=== PATIENT | female | born 1960 | race Caucasian/White ===

== ENCOUNTER 2025-06-07 12:45 | Outpatient (AMB) | payer OTHER, SELFPAY ==
--- OUTSIDE RECORDS SUMMARY | 2021-07-30 17:40 | XMS_ITS | Encounter Summary ---
Author Organization [facility] Address [address] [facility] [address] [place] [phone] Phone Care Team Providers Care Red Lead Burner Name Role Phone Daisy Mclean MD, MPH Primary Care Provid er Encounter Details Date Type Department Care Team (Late st Contact Info) Description 07/30/2021 4:40 PM EST Hospital Encounter [facility] [address] [place] [phone] Corina Stewart, LUZ ELENA [address] [place] [address] [email or web address] Social History Tobacco Use Types Packs/Day Years Used Date Smoking Tobacco: Never Smokeless Tobacco: Never Alcohol Use Standard Drinks/Week Comments Yes 0 (1 standard drink = 0.6 oz pur e alcohol) Rare; special occ Child or Family Care Answer Date Record ed Do you have problems with on e of the following making it difficult for you to work, study, or receive health care? No 03/11/2021 Education Answer Date Recorded Are you interested in more education? Not on wood e 03/17/2023 Are you concerned about learning? Not on file 03/17/2023 No 03/17/2023 No 03/17/2023 Food Answer Date Recorded Within the past 6 months we worried whether our food would run out before we got money to buy more. Never True 03/11/2021 Within the past 6 months the food we bought just didn't last and we didn't have enough money to get more. Never True Residential Stability Answer Date Recor ded What is your housing situation today? I have stephanie grace 03/11/2021 How many times have you move d in the past 12 months? Zero (I did not move) 03/11/2021 06 Are you worried that in t he next 2 months, you may not have your own housing to live in? No 03/11/2021 Paying for Meds Answer Date Recorded Do you have trouble paying for medicines? No 03/11/2021 Paying Utility Bills Answer Date Record ed Do you have trouble paying your heating or elect ricity bill? No 03/11/2021 Transportation Answer Date Recorded Has the lack of transportati on kept you from medical appointments or from getting medications? No 03/11/2021 Unemployment Answer Date Recorded Are you currently unemployed or working on a part-time or temporary basis, and looking for work? No 03/11/2021 Digital Access Answer Date Recorded No 02/16/2023 No 02/16/2023 Reliable internet access at home? Not on file 02/16/2023 Device with a working camera? Not on file Intimate Partner Violence Answer Date R ecorded Are you denied basic needs s uch as food, clothing, or medical care? No 10/09/2022 In the past 12 months have y ou been in a relationship with a person who hurts, threatens, or tries to control you? No 10/09/2022 Are you denied basic needs s uch as food, clothing, or medical care? No 10/09/2022 In the past 12 months have y ou been in a relationship with a person who hurts, threatens, or tries to control you? No 10/09/2022 Comments No Sex and Gender Information Value Date Recorded Sex Assigned at Female 03/11/2021 10:51 AM EDT Legal Sex Female 9:46 PM EDT Gender Identity Female 03/11/2021 10:51 AM EDT Sexual Orientation Straight 03/11/2021 10 :51 AM EDT documented as of this encounter Plan of Treatment Not on file documented as of this encounter Procedures Procedure Name Priority Date/Time Associated Diagnosis Comments XR LUMBOSACRAL SPINE 4 OR MORE VIEWS Urgent/patient waiting 07/30/2021 4:59 PM EST Midline low back pain without sciatica, unspecified chronicity documented in this encounter Results * XR LUMBOSACRAL SPINE 4 OR MORE VIEWS (07/30/2021 4:59 PM EST) Anatomical Region Laterality Modality L-spine Computed Radiogr aphy 07/30/2021 5:09 PM EST Impressions 07/30/2021 5:11 PM EST No displaced fracture. Narrative 07/30/2021 5:11 PM EST XR LUMBOSACRAL SPINE 4 OR MORE VIEWS COMPARISON: None FINDINGS: Normal alignment. Normal vertebral body heights. Normal intervertebral disc spaces. Multilevel small endplate osteophytes. Mild facet arthropathy at the mid to lower lumbar spine. Intact sacroiliac joints. Procedure Note Andie Mendes MD - 07/30/2021 XR LUMBOSACRAL SPINE 4 OR MORE VIEWS COMPARISON: None FINDINGS: Normal alignment. Normal vertebral body heights. Normal intervertebraldisc spaces. Multilevel small endplate osteophytes. Mild facet arthropathyat the mid to lower lumbar spine. Intact sacroiliac joints. IMPRESSION: No displaced fracture. Corina Stewart JET HANDLER IMG XR SPINE Final Resul t documented in this encounter Visit Diagnoses Not on filedocumented in this encounter Additional Health Concerns Assessment Noted Time PHQ-2 Depression Total Score: 0 03/11/20 21 10:45 AM EDT documented as of this encounter Care Teams Red Lead Burner Relationship Specialty Start Date End Date Daisy Mclean MD, MPH [address] [place] [phone] PCP - General Family Medicine 03/11/21 11/17/22 documented as of this encounter Additional Source Comments The information contained in this document represents components of the legal health record. It is not the complete legal health record.[facility]
--- OUTSIDE RECORDS SUMMARY | 2021-12-06 09:51 | XMS_ITS | Encounter Summary ---
Author Organization [facility] Address [address] [facility] [address] [place] [phone] Phone Care Team Providers Care Lead Instructor/Flight Attendant Name Role Phone Daisy Mclean MD, MPH Primary Care Provid er Encounter Details Date Type Department Care Team (Late st Contact Info) Description 12/06/2021 9:51 AM EDT Hospital Encounter [facility] [address] [place] [phone] Corina Stewart, LUZ ELENA [address] [place] [phone] Social History Tobacco Use Types Packs/Day Years [...] your housing situation today? I have stephanie sing 03/11/2021 How many times have you move [...] Name Priority Date/Time Associated Diagnosis Comments XR KNEE 4 OR MORE VIEWS (LEFT) Urgent/patient waiting 12/06/2021 10:00 AM EDT Knee strain, left, subsequent encounter documented in this encounter Results * XR KNEE 4 OR MORE VIEWS (LEFT) (12/06/2021 10:00 AM EDT) Anatomical Region Laterality Modality Knee Left Computed Radiogr aphy 12/06/2021 10:2 6 AM EDT Impressions 12/06/2021 10:28 AM EDT No fracture or dislocation. Narrative 12/06/2021 10:28 AM EDT XR KNEE 4 OR MORE VIEWS (LEFT) COMPARISON: None. FINDINGS: No fracture. Normal alignment. Normal joint spaces. No effusion. Procedure Note Sobeida Meyer MD - 12/06/2021 XR KNEE 4 OR MORE VIEWS (LEFT) COMPARISON: None. FINDINGS: No fracture. Normal alignment. Normal joint spaces. No effusion. IMPRESSION: No fracture or dislocation. Corina Stewart OCULAR PATHOLOGIST IMG XR LOWER EXTREMITY Elda l Result documented in this encounter Visit Diagnoses Not on filedocumented in this encounter Additional Health Concerns Assessment Noted Time PHQ-2 Depression Total Score: 0 03/11/20 21 10:45 AM EDT documented as of this encounter Care Teams Lead Instructor/Flight Attendant Relationship Specialty Start Date End Date Daisy Mclean MD, MPH [address] [place] [address] [email or web address] PCP - General Family Medicine 03/11/21 11/17/22 documented as of this encounter Additional Source Comments The information contained in this document represents components of the legal health record. It is not the complete legal health record.[facility]
--- NOTE | 2025-06-07 12:53 | MHC.OFFVIS ---
Intake Visit Reasons: 3m Allergies bacitracin (From Neosporin ([id number])) Allergy (Unknown, Verified 10/22/22 14:36) Hives neomycin (From Neosporin (kfs-fme-[id number])) Allergy (Unknown, Verified 10/22/22 14:36) Hives polymyxin B (From Neosporin (zrt-kwc-[id number])) Allergy (Unknown, Verified 10/22/22 14:36) Hives Sulfa (Sulfonamide Antibiotics) Allergy (Unknown, Unverified 02/11/22 16:34) Abdominal Pain sulfacetamide (From Sulfacet-R) Allergy (Unknown, Verified 10/22/22 14:36) Hives sulfur (From Sulfacet-R) Allergy (Unknown, Verified 10/22/22 14:36) Hives tramadol Allergy (Unknown, Unverified 02/11/22 16:34) Drowsy, hives, itchy Medication List - Last Reconciled 06/07/25 by Sachi Black MD cyanocobalamin (vitamin B-12) ER 1,000 mcg PO DAILY empagliflozin (Jardiance) 25 mg PO DAILY glipizide ER 5 mg PO DAILY levothyroxine 112 mcg PO DAILY lisinopril 10 mg PO DAILY pregabalin 75 mg PO BID rosuvastatin 10 mg PO DAILY HPI Comments Details: Still has some tingling in hand sand they feel like sausages. Overall, it is slightly better. It affects all fingers. She has a history of cervical disc disease, B12 deficiency, hypothyroidism, and diabetes for 3 years who comes in with a one-year history of numbness and tingling in the hands that is quite persistent for the last one year.? She has no complaints in the lower extremities.? She notes no weakness.? Initially she had some pain going down from above the elbow to the hand but that has subsided. [facility] Medical History (Updated 06/07/25 @ 12:59 by Sachi Black MD) Cervical disc disease Review of Systems Const Details: Sleep:? Difficulty getting to sleepadmits.? Difficulty maintaining sleepadmits.? Urge to move legsdenies.? Teeth grindingdenies.? Shouting or Kicking during sleepdenies.? Abnormal behavior during sleepdenies.? Excessive sleepdenies.? Snoringdenies.? Daytime sleepinessdenies. ???General/Constitutional:? Change in appetitedenies.? Chillsdenies.? Fatiguedenies.? Feverdenies.? Weight gaindenies.? Weight lossdenies. ???Ophthalmologic:? Blurred visiondenies.? Diminished visual acuitydenies. ???ENT:? Stuffinessdenies.? Decreased hearingdenies.? Dry mouthdenies.? Ear painadmits.? Nosebleeddenies.? Ringing in the earsdenies.? Sinus painadmits.? Sore throatdenies.? Swollen glandsdenies. ???Endocrine:? Cold intolerancedenies.? Excessive thirstdenies.? Frequent urinationdenies.? Heat intolerancedenies. ???Respiratory:? Shortness of breathdenies.? Chest paindenies.? Coughdenies. ???Breast:? Breast lumpdenies.? Nipple dischargedenies. ???Cardiovascular:? Chest pain at restdenies.? Chest pain with exertiondenies.? Claudicationdenies.? Dizzinessdenies.? Fluid accumulation in the legsdenies.? Irregular heartbeatdenies.? Palpitationsdenies. ???Gastrointestinal:? Abdominal paindenies.? Constipationdenies.? Diarrheadenies.? Difficulty swallowingdenies.? Heartburndenies.? Nauseadenies.? Rectal bleedingdenies. ???Hematology:? Easy bruisingadmits.? Prolonged bleedingdenies. ???Genitourinary:? Frequent urinationdenies.? Urgencydenies.? Incontinencedenies.? Erectile Dysfunctiondenies. ???Musculoskeletal:? Neck painadmits.? Back paindenies.? Muscle achesadmits.? Painful jointsadmits.? Sciaticadenies.? Weaknessdenies. ???Podiatric:? Difficulty walkingdenies.? Foot numbnessdenies. ???Neurologic:? Difficulty swallowingdenies.? Balance difficultydenies.? Coordinationnormal.? Difficulty speakingdenies.? Dizzinessdenies.? Faintingdenies.? Gait abnormalitydenies.? Headachedenies.? Loss of strengthdenies.? Loss of use of extremitydenies.? Low back paindenies.? Memory lossdenies.? Seizuresdenies.? Ticsdenies.? Tingling/Numbnessbilateral upper extremities.? Transient loss of visiondenies.? Tremordenies. ???Psychiatric:? Anxietydenies.? Auditory/visual hallucinationsdenies.? Delusionsdenies.? Depressed mooddenies.? Stressorsdenies.? Substance abusedenies.? Suicidal thoughtsdenies. Physical Exam Neuro Other: Neurological: Abnormal neurological findings:??none.?Mental Status:??alert and oriented X 3,?Normal attention, orientation, memory and affect.?Cranial Nerves:??Pupils are equal, round and reactive to light. Fundoscopy shows normal disc bilaterally. External occular muscles are intact. Visual bay are full, no ptosis. Face is symmetrical, no facial weakness or droop. Facial sensations are normal. Tongue protrudes in midline. Palate elevates symmetrically. Shoulder shrugging is normal..?Motor Examination:??Normal muscle tone, bulk and strength,?No atrophy or fasciculations,?No drift of the extended upper extremities,?Deep tendon reflexes are 2+?,?Plantars are flexor?.?Motor Strength:?Proximal Muscles (out of 5):5Distal Muscles (out of 5):5Neck Flexors (out of 5):5Neck Extensors (out of 5):5Deltoid (out of 5):5Biceps (out of 5):5Triceps (out of 5):5Serratus Anterior (out of 5):5Wrist Extensors (out of 5):5APB (out of 5):5Finger Spread (out of 5):5Ileopsoas (out of 5):5Quadriceps (out of 5):5Hamstrings (out of 5):5Tibialis Anterior (out of 5):5Peronei (out of 5):5EDB (out of 5):5Gastrocnemius (out of 5):5Straight Leg Raising:??90 degrees.?Sensory Exam:??Normal light touch, temperature, pinprick, vibration and joint-position sensations?,?Rhomberg sign is absent.?Coordination:??no ataxia,?no titubation,?epguli-jz-vnqo, aovo-amzp-evnp test and rapid alternating movements were normal.?Gait Exam:??Within normal limits.?Cerebellar Signs:??Jqczbl-vu-wfsy and cbpt-gx-rpka is normal,?no dysdiadochokinesia?.?Extrapyramidal System:??No tremor, rigidity with normal facial expressions,?No bradykinesia, no bradyphrenia. Normal arm swing and posture. No propulsion or retropulsion.?Speech:??Normal,?no dysphasia or dysarthria..? Mini Mental Status Exam: Level of Consciousness:??Alert.?Orientation:??Knows correct year, month, date, day and season,?Knows correct city, county and state. Knows correct location and floor.?Registration:??Able to register 3 objects.?Attention:??Serial 7's performed accurately.?Recall:??Able to recall 3 out of 3 objects.?Language:??Normal spontaneous speech, fluency, repetition,naming, comprehension, reading and writing.?Total Score:??30/30.? General Examination: GENERAL APPEARANCE:??normal,?in no acute distress.?HEAD:??normocephalic,?atraumatic.?EYES:??sclera non-icteric,?conjunctiva clear.?EARS:??auditory canal clear,?tympanic membrane intact, clear.?NOSE:??no lesions.?ORAL CAVITY:??gums normal,?mucosa moist,?no lesions.?THROAT:??clear.?NECK/THYROID:??no cervical lymphadenopathy,?thyroid normal,?neck supple, full range of motion,?no carotid bruit.?SKIN:??no rashes,?no significant birthmarks.?HEART:??S1, S2 normal,?no murmurs.?LUNGS:??clear anteriorly and posteriorly.?CHEST:??no gross rib deformity,?clear to auscultation.?BACK:??normal exam of spine.?EXTREMITIES:??no edema.?PERIPHERAL PULSES:??normal.?PSYCH:??alert, oriented,?cognitive function intact,?cooperative with exam.? Assessment & Plan Assessment & Plan (1) Cervical radiculopathy: Comment: 01/13/25 MRI C spine shows degen disc disease at C5-6-7 with canal stenosis at C5-6 and bilateral foraaminal stenosis at both levels. No abnormal cord signal MRI brain shows non specific deep white matter T2 hyperintensities of microvacsular origin. 10/15 NCV at [facility] reported mild CTS on one side Code(s): M54.12 - Radiculopathy, cervical region Category: Medical (2) Cervical disc disease: Code(s): M50.90 - Cervical disc disorder, unspecified, unspecified cervical region Category: Medical Plan As long as sx are improving , continue currents meds. May taper off Pregabalin in a few months also. Repeat NCV/ EMG of UE if sx get worse Coding Level of Care Code Est Pt Level 4 (95601) Diagnoses Cervical radiculopathy M54.12 Cervical disc disease M50.90
--- OUTSIDE RECORDS SUMMARY | 2025-06-07 16:11 | XMS_ITS | Encounter Summary ---
Author Organization [facility] Address [address] [address] Phone Care Team Providers Care Boiler Washer Name Role Phone Padmini Goss DO Primary Care Provider [phone] Shanta Weber MD Primary Care Provider [phone] Daisy Mclean MD, MPH Primary Care Provid er Bela Dumont SUPERINTENDENT POWER Primary Care Provider Encounter Details Date Type Department Care Team (Late st Contact Info) Description 06/20/2020 Procedure Pass [facility], [address] [id number] Social History Tobacco Use Types Packs/Day Years Used Date Smoking Tobacco: Never Smokeless Tobacco: Never Comments No Sex and Gender Information Value Date Recorded Sex Assigned at Female 03/11/2021 10:51 AM EDT Legal Sex Female 9:46 PM EDT Gender Identity Female 03/11/2021 10:51 AM EDT Sexual Orientation Straight 03/11/2021 10 :51 AM EDT documented as of this encounter Plan of Treatment Not on file documented as of this encounter Visit Diagnoses Not on filedocumented in this encounter Additional Health Concerns Assessment Noted Time PHQ-2 Depression Total Score: 0 06/18/20 20 4:19 PM EDT documented as of this encounter Care Teams Boiler Washer Relationship Specialty Start Date End Date Padmini Goss DO [address] [place] [address] [email or web address] PCP - General Family Medicine 09/13/19 01/24/21 Shanta Weber MD [address] [place] [phone] [email or web address] PCP - General Family Medicine 01/25/21 03/10/21 Daisy Mclean MD, MPH [address] [place] [phone] [email or web address] PCP - General Family Medicine 03/11/21 11/17/22 Bela Dumont NP [address] [place] [phone] [email or web address] PCP - General Nurse Practitioner 11/18/22 documented as of this encounter Additional Source Comments The information contained in this document represents components of the legal health record. It is not the complete legal health record.[facility]
--- OUTSIDE RECORDS SUMMARY | 2025-06-07 16:12 | XMS_ITS | Clinical Summary ---
Author Organization [facility] Address [address] [address] Phone Care Team Providers Care Color Tester Name Role Phone Bela Dumont AUDIO/VISUAL OPERATOR Primary Care Provider Allergies Active Allergy Reactions Criticality Noted Date Comments Adhesive Rash Low 08/12/2021 Occasional rash from bandaids Sulfamethoxazole-Trimethop rim Hives 08/11/2017 Gadolinium-Containing Contrast Media 11/05/2021 Latex Rash Low 11/05/2021 Otljocnz-Ywyfklyxje-Aidwrp leslie 11/29/2021 Other reaction(s): blisters Neomycin-Polymyxin B Gu 07/10/2021 Pollen Extracts 11/29/2021 Sulfa (Sulfonamide Antibiotics) 07/30/2021 Tramadol Diarrhea 08/11/2017 Mouth blisters, shakiness, syncope Other reaction(s): Clammy sweat, Dizzy, Nausea present Medications cholecalciferol (VITAMIN D3) 1,000 unit tablet Take 1,000 Units by mouth daily. Active therapeutic multivitamin tablet Take 1 tablet by mouth daily. Active ONETOUCH VERIO Strp strips 1 each by Miscellaneous route as needed. One touch Verio Test strips Active lancets Misc 1 each by Miscellaneous route as needed. 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 30 g 12/18/19 21 Active omeprazole (PRILOSEC) 20 MG capsule Take 1 capsule (20 mg total) by mouth daily. 28 capsule 08/12/20 Active pioglitazone (ACTOS) 15 MG tabletIndications: Type 2 diabetes mellitus without complication, without long-term current use of insulin Take 1 tablet (15 mg total) by mouth daily. 30 tablet 5 11/05/19 22 Active Additional Information Patient not taking.Reported on 10/08/2022 metFORMIN (GLUCOPHAGE) 1000 MG tabletIndications: Type 2 diabetes mellitus without complication, without long-term current use of insulin TAKE 1 TABLET(1000 MG) BY MOUTH TWICE DAILY WITH MEALS 180 tablet 3 01/16/20 22 Active rosuvastatin (CRESTOR) 10 MG tabletIndications: Mixed hyperlipidemia TAKE 1 TABLET BY MOUTH EVERY DAY 90 tablet 08/29/20 22 Active levothyroxine (SYNTHROID, LEVOTHROID) 112 MCG tabletIndications: Acquired hypothyroidism TAKE ONE TABLET BY MOUTH EVERY MORNING TAKE SUNDAYS OFF 30 tablet 09/24/19 23 Active fexofenadine-pseud oephedrine (CODY-D) 60-120 mg per tablet Take 1 tablet by mouth 2 (two) times a day. Active Active Problems Problem Noted Date Diagnosed Date Psoriasis 11/29/2021 Adenoma of large intestine 11/29/2021 Varicose veins of both lower extremities with pa in 07/10/2021 Fecal incontinence 03/11/2021 Assessment & Plan (03/11/2021 12:14 PM EDT): Trial of adding fiber (psyllium fiber/metamucil) daily. Reassess at follow up. If no improvement will refer to GI. Restless leg syndrome 12/17/2020 Overview (03/11/2021): On sleep study in the late 1980s/early Resolved with iron supplement Mixed hyperlipidemia 11/09/2019 Assessment & Plan (07/11/2021 6:05 AM EDT): Recent FLP with elevated TGs likely related to DM out of control. Will monitor. Assessment & Plan (03/11/2021 12:12 PM EDT): Cont statin Type 2 diabetes mellitus wit hout complication, without long-term current use of insulin 11/09/2019 Assessment & Plan (11/12/2021 11:40 AM EST): Improved but not well controlled. Will add another agent, somewhat pending on insurance coverage. Actos- reviewed side effects. Assessment & Plan (07/11/2021 6:05 AM EDT): Not well contolled. Increase metformin to BID. Counseled on regular snacks, including proteins and fats with each one. Increase cardiovascular exercise- 15 min of elevated HR per day. Hypothyroid 11/09/2019 Assessment & Plan (11/12/2021 11:41 AM EST): Due for level Seasonal allergic rhinitis 11/09/2019 Assessment & Plan (03/11/2021 11:26 AM EDT): Cont with Dr Tran. Cont with flonase, cetirizine and saline sprays. Degeneration of intervertebral disc of cervical region 11/22/2010 Resolved Problems Problem Noted Date Diagnosed Date Resolved Date Health care maintenance 12/06/202111/19 Impaired fasting glucose 01/07/2011 Encounters Date Type Department Care Team Description 05/15/2025 2:45 PM EDT - 05/15/2025 11:59 PM EDT Hospital Encounter [address] [address] Bela Dumont NP Discharge Disposition: Home or Self Care 11/11/2024 Procedure Pass [address] [address] from Last 3 Months Immunizations Immunization Administration Dates Next Due COVID-19 (Pre-07/13) Pfizer Vaccine, mRNA, PF 01/05/2021,12/12/2020 INFLUENZA, SPLIT VIRUS, TRIV ALENT W/ PRESERVATIVE IM 07/22/2011 Influenza Quadrivalent MDCK Preservative Free IM 07/17/2022 Influenza Quadrivalent Prese rvative Free IM 07/10/2021,06/18/2020 Influenza Quadrivalent w/ Pr eservative IM 06/15/2019,08/03/2018,09/04/2017,07/07 Pneumococcal polysaccharide PPSV23 07/10/2021 Tdap 07/07/2016,11/22/2010 Zoster recombinant 09/15/2022,04/10/2022 Family History Medical History Relation Comments Breast cancer Cousin 1 paternal Breast cancer Cousin 2 paternal Relation Status Comments Cousin 1 Cousin 2 Social History Tobacco Use Types Packs/Day Years Used Date Smoking Tobacco: Never Smokeless Tobacco: Never Tobacco Cessation:Counseling Given: Not Answered Alcohol Use Standard Drinks/Week Comments Yes 0 [...] Orientation Straight 03/11/2021 10 :51 AM EDT Last Filed Vital Signs Vital Sign Reading Time Taken Comments Blood Pressure 140/80 11/19/2022 2:37 PM EST Pulse 103 11/19/2022 2:37 PM EST Temperature 36.6 C (97.9 F) 11/19/2022 2:37 PM EST Respiratory Rate 16 11/19/2022 2:37 PM EST Oxygen Saturation 97% 11/19/2022 2:37 PM EST Inhaled Oxygen Concentration - - Weight 82.6 kg (182 lb) 12/16/2022 1:59 PM EDT Height 154.9 cm (5' 1 ) 12/16/2022 1:59 PM EDT Body Mass Index 34.39 12/16/2022 1:59 PM EDT Plan of Treatment Health Maintenance Due Date Last Done Comments HEPATITIS C SCREENING 1979 HIV ONE-TIME SCREENING (18-65 YEARS) 1979 COLOGUARD 2006 FIT TEST 2006 FOBT 2006 SIGMOIDOSCOPY 2006 VIRTUAL COLONOSCOPY 2006 PAP SMEAR 08/29/2018 08/29/2015 DIABETIC EYE EXAM 12/19/2021 12/19/2020 URINE MICROALBUMIN/CREATININE RATIO 01/08/2022 01/08/2021 DEPRESSION SCREENING 03/11/2022 03/11/2021 HEMOGLOBIN A1C 05/05/2022 11/05/2021, 06/21, 01/08/2021, Additional history exists CREATININE LEVEL 07/05/2022 07/05/2021, 02/21/2020 TSH LEVEL 07/05/2022 07/05/2021, 12/21, 02/21/2020 PNEUMOCOCCAL VACCINES (50+ years) (2 of 2 - PCV) 07/10/2022 07/10/2021 BLOOD PRESSURE 05/22/2023 11/19/2022 INFLUENZA VACCINE (#1) 2025 , 07/10/2021, 06/18/2020, Additional history exists COVID-19 VACCINE (2024- season) 2025 06/28/2022, 08/24/2021, 01/05/2021, Additional history exists Adult Td,Tdap Booster 07/07/2026 07/07/2016, 011 MAMMOGRAM 05/15/2027 05/15/2025, 05/0 03/2024, 12/30/2022, Additional history exists COLONOSCOPY 10/09/2032 10/09/2022, 08/21/2017 COLORECTAL CANCER SCREENING 10/09/2032 RSV VACCINE (1 - 1-dose 75+ series) 2036 ZOSTER VACCINES Completed 09/15/2022, 04/10/2022 SMOKING STATUS SCREENING (Once After 26 Yrs) Completed 01/18/2025 HEPATITIS A VACCINES Aged Out No long er eligible based on patient's age to complete this topic HIB VACCINES Aged Out No longer eligi ble based on patient's age to complete this topic MENINGOCOCCAL VACCINES (ACWY) Aged Out No longer eligible based on patient's age to complete this topic MENINGOCOCCAL VACCINES (B) Aged Out N o longer eligible based on patient's age to complete this topic Medical Devices Not on file Procedures Procedure Name Priority Date/Time Associated Diagnosis Comments BI MAMMOGRAM SCREENING WITH TOMOSYNTHESIS WITH CAD (BILATERAL) Routine 05/15/2025 3:11 PM EDT Breast screening ENDOSCOPY, COLON 10/09/2022 11:2 3 AM EST POCT HEMOGLOBIN A1C Routine 11/05/2021 3 :05 PM EST Type 2 diabetes mellitus without complication, without long-term current use of insulin TSH Routine 07/05/2021 9:24 AM EDT Acquired hypothyroidism COMPREHENSIVE METABOLIC PANEL Routine 07/05/2021 9:24 AM EDT Type 2 diabetes mellitus without complication, without long-term current use of insulin MICROALBUMIN/CREATINI NE RATIO, RANDOM URINE Routine 01/08/2021 1:58 PM EDT Type 2 diabetes mellitus without complication, without long-term current use of insulin DIABETES EYE EXAM FOR RESULT ENTRY ONLY Routine 12/19/2020 PAP SMEAR FOR RESULT ENTRY ONLY Routine 08/29/2015 from Last 3 Months or Most Recently Relevant to Health Maintenance Results * BI MAMMOGRAM SCREENING WITH TOMOSYNTHESIS WITH CAD (BILATERAL) (05/15/2025 3:11 PM EDT) Anatomical Region Laterality Modality Breast Left, Breast Right, Breast Bilateral Bila teral Mammography 05/17/2025 8:12 AM EDT Impressions 05/17/2025 8:24 AM EDT No mammographic evidence of malignancy in either breast. Annual screening mammography is recommended. BI-RADS 1 NEGATIVE The patient will be notified of the results and recommendations. Narrative 05/17/2025 8:24 AM EDT BI MAMMOGRAM SCREENING WITH TOMOSYNTHESIS WITH CAD (BILATERAL) Additional patient information: Screening. COMPARISON: Comparison is made with relevant prior imaging. Breast composition: There are scattered areas of fibroglandular density. FINDINGS: No abnormal masses, suspicious calcifications, or other significant findings are identified mammographically in either breast. Procedure Note Alan Villanueva MD - 05/17/2025 BI MAMMOGRAM SCREENING WITH TOMOSYNTHESIS WITH CAD (BILATERAL) Additional patient information: Screening. COMPARISON: Comparison is made with relevant prior imaging. Breast composition: There are scattered areas of fibroglandular density. FINDINGS: No abnormal masses, suspicious calcifications, or other significantfindings are identified mammographically in either breast. IMPRESSION: No mammographic evidence of malignancy in either breast. Annual screening mammography is recommended. BI-RADS 1 NEGATIVE The patient will be notified of the results and recommendations. us Bela Wan Tim AUDIO/VISUAL OPERATOR IMG MG EXAMS Final Result * ENDOSCOPY, COLON (10/09/2022 11:23 AM EST) Narrative Transcriptions Storm Onofre MD - 10/09/2022 11:23 AM EST [facility] Patient Name: Jacki Keller Attending MD:: STORM ONOFRE MD Procedure Date: 10/09/2022 11:23 AM Date of : 1960 Age: 62 Admit Type: Outpatient Gender: Female Room: [place] [address] Referring MD: Daisy Mclean Exam Type: Colonoscopy Indications: High risk colon cancer surveillance: Personalhistory of colonic polyps, Last colonoscopy: August2017 Medications: Propofol per Anesthesia Procedure: Informed consent was obtained from the patientafter discussion of the indications, limitations, alternatives, benefits, and risks of the procedure. Risks specifically discussed include but are not limited to medication reactions, missed lesions, bleeding, perforation, or the need for emergent surgery. Throughout the procedure, the patient's blood pressure, pulse, end-tidal CO2, and oxygensaturations were monitored continuously. The Olympus adult variable colonoscope [id number] #4 was introduced through the anus and advanced to the cecum, identified by appendiceal orifice andileocecal valve. The ileocecal valve, appendiceal orifice,and rectum were photographed. The colonoscopy was performed without difficulty. The patient tolerated the procedure well. The quality of the bowel preparation was excellent. The bowel preparationused was PEG/Miralax in Gatoraide and/or Pedialyte via split dose instruction. Complications: No immediate complications. Estimated blood loss:None. Findings: The perianal and digital rectal examinations were normal. Pertinent negatives include no palpablerectal lesions. Internal hemorrhoids were found duringretroflexion. The hemorrhoids were small. A diminutive polyp was found in the ascendingcolon. The polyp was removed with a cold biopsy forceps. Resection and retrieval were complete. The exam was otherwise without abnormality. Retroflexion in the right colon was performed. Impression: - Internal hemorrhoids. - One diminutive polyp in the ascending colon,removed with a cold biopsy forceps. Resected andretrieved. - The examination was otherwise normal. Recommendation: - If the pathology report reveals adenomatoustissue, then repeat the colonoscopy for surveillance in 5 years. - If the pathology report reveals no adenomatous tissue, then repeat the colonoscopy forsurveillance in 7-8 years. STORM ONOFRE MD 10/09/2022 11:57:55 AM This report has been signed electronically. Number of Addenda: 0 Note Initiated On: 10/09/2022 11:23 AM Procedure Code(s): --- Professional --- 23307, Colonoscopy, flexible; with biopsy, single or multiple --- Technical --- 24396, Colonoscopy, flexible; with biopsy, single or multiple Diagnosis Code(s): --- Professional --- Z86.010, Personal history of colonic polyps K64.8, Other hemorrhoids K63.5, Polyp of colon --- Technical --- Z86.010, Personal history of colonic polyps K64.8, Other hemorrhoids K63.5, Polyp of colon CPT copyright 2020 [employer]. All rights reserved. The codes documented in this report are preliminary and upon palletiser operator reviewmay be revised to meet current compliance requirements. Procedure Date: 10/09/2022 11:23:17 AM [address] [place] [address] us Daisy Mclean MD, MPH GI PROCEDURE ORDERAB LES Final Result * (ABNORMAL) POCT Hemoglobin A1c (11/05/2021 3:05 PM EST) Hemoglobin A1c 7.9(A) 4.2 - 5.8 % [facility] Other 11/05/2021 3:05 PM EST us Daisy Mclean MD, MPH POINT OF CARE TEST O RDERABLES Final Result Performing Organization Address City/State/[facility] Co de Phone Number [facility] [address] * (ABNORMAL) Comprehensive metabolic panel (07/05/2021 9:24 AM EDT) SODIUM 138 133 - 146 mmol/L [facility] POTASSIUM 4.2 3.3 - 5.1 mmol/L [facility] CHLORIDE 101 96 - 108 mmol/L [facility] CO2 26 21 - 35 mmol/L [facility] BUN 14 6 - 19 mg/dL [facility] CREATININE 0.80 0.5 - 1.5 mg/dL [facility] GLUCOSE 174(H) 70 - 99 mg/dL [facility] ALBUMIN 4.4 3.9 - 4.8 g/dL [facility] TOTAL PROTEIN 7.3 6.5 - 8.0 g/dL [facility] CALCIUM 9.6 8.4 - 10.3 mg/dL [facility] ALKALINE PHOSPHATASE 110 39 - 117 U/L [facility] TOTAL BILIRUBIN 0.3 0.0 - 1.2 mg/dL [facility] AST 28 0 - 37 U/L [facility] ALT 38 0 - 40 U/L [facility] GLOBULIN 2.9 1 - 4.8 g/dL [facility] EGFR 81 >59 mL/min/1.7 3m2 [facility] Comment:Estimated glomerular filtration rate calculated using the CKD-EPI equation. ANION GAP 15 10 - 20 mmol/L [facility] Blood 07/05/2021 9:24 AM EDT 07/05/2021 9:35 AM EDT us Daisy Mclean MD, MPH LAB BLOOD ORDERABLES Final Result Performing Organization Address [facility] Co de Phone Number [address] [address] * TSH (07/05/2021 9:24 AM EDT) TSH 2.10 0.27 - 4.20 uIU/mL [facility] Blood 07/05/2021 9:24 AM EDT 07/05/2021 9:35 AM EDT us Daisy Mclean MD, MPH LAB BLOOD ORDERABLES Final Result Performing Organization Address [facility] Co de Phone Number [address] [address] * Microalbumin/creatinine ratio, random urine (01/08/2021 1:58 PM EDT) URINE MICROALBUMIN <1.2 0 - 2.3 mg/dL [facility] URINE CREATININE 15 mg/dL [facility] MICROALB/CRE RATIO NOT CALCULATED 0 - 20 mg/g Cre [facility] Comment:due to Microalbumin <1.2 Urine (Urine) 01/08/2021 1:5 8 PM EDT 01/08/2021 2:11 PM EDT us Padmini Goss DO URINE ORDERABLES Final Res ult Performing Organization Address [facility] Co de Phone Number [address] [address] * DIABETES EYE EXAM FOR RESULT ENTRY ONLY (12/19/2020) us Historical Provider HEALTH MAINTENANCE Edited Result - Final * PAP SMEAR FOR RESULT ENTRY ONLY (08/29/2015) us Historical Provider HEALTH MAINTENANCE Edited Result - Final from Last 3 Months or Most Recently Relevant to Health Maintenance Insurance [address] [place] [address] [place], [place] [address] MIIA Care Teams Color Tester Relationship Specialty Start Date End Date Bela Dumont NP [address] [place] [phone] [email or web address] PCP - General Nurse Practitioner 11/18/22 Additional Source Comments The information contained in this document represents components of the legal health record. It is not the complete legal health record.[facility]
--- OUTSIDE RECORDS SUMMARY | 2025-06-07 16:12 | XMS_ITS | Encounter Summary ---
Author Organization [facility] Address [address] [facility] [address] [place] [address] Phone Care Team Providers Care Chief Nursing Officer Name Role Phone Padmini Goss DO Primary Care Provider [phone] Shanta Weber MD Primary Care Provider + [phone] Daisy Mclean MD, MPH Primary Care Provid er Bela Dumont NP Primary Care Provider Encounter Details Date Type Department Care Team (Late st Contact Info) Description 06/20/2020 Ancillary Orders [facility] [address] [place] [address] Padmini Goss DO [address] [place] [address] [email or web address] Breast screening Social History Tobacco Use Types Packs/Day Years [...] on file documented as of this encounter Results * BI MAMMOGRAM SCREENING WITH TOMOSYNTHESIS WITH CAD (BILATERAL) (10/03/2020 2:05 PM EST) Anatomical Region Laterality Modality Breast Left, Breast Right, Breast Bilateral Bila teral Mammography 10/03/2020 2:32 PM EST Impressions 10/03/2020 2:36 PM EST BILATERAL BREASTS: Negative, no evidence of malignancy. Normal interval follow- up is recommended in 12 months. Bi-RADS: BI-RADS CATEGORY: 1 - Negative. DENSITY: There are scattered fibroglandular densities. Narrative 10/03/2020 2:36 PM EST STUDY: Bilateral screening mammography with tomosynthesis and CAD TECHNIQUE: Bilateral full-field digital screening mammography is obtained and read in conjunction with computer-aided detection. Tomosynthesis as well as 2-D C view imaging were obtained. COMPARISON: Comparison made to multiple prior, most recent July 18, 2019, and most remote January 31, 2014. BREAST COMPOSITION: There are scattered areas of fibroglandular density BILATERAL BREASTS: No significant masses, suspicious calcifications or other abnormalities are seen. Procedure Note Audi Dominguez MD - 10/03/2020 STUDY: Bilateral screening mammography with tomosynthesis and CAD TECHNIQUE: Bilateral full-field digital screening mammography is obtainedand read in conjunction with computer-aided detection. Tomosynthesis aswell as 2-D C view imaging were obtained. COMPARISON: Comparison made to multiple prior, most recent June, and most remote January 31, 2014. BREAST COMPOSITION: There are scattered areas of fibroglandulardensity BILATERAL BREASTS: No significant masses, suspicious calcifications orother abnormalities are seen. IMPRESSION: BILATERAL BREASTS: Negative, no evidence of malignancy. Normal intervalfollow-up is recommended in 12 months. Bi-RADS: BI-RADS CATEGORY: 1 - Negative. DENSITY: There are scattered fibroglandular densities. us Padmini Goss DO IMG MG EXAMS Final Resu lt documented in this encounter Visit Diagnoses Diagnosis Breast screening Breast screening, unspecified Breast screening Breast screening, unspecified documented in this encounter Additional Health Concerns Assessment Noted Time PHQ-2 Depression Total Score: 0 06/18/20 20 4:19 PM EDT documented as of this encounter Care Teams Chief Nursing Officer Relationship Specialty Start Date End Date Padmini Goss DO [address] [place] [address] [email or web address] PCP - General Family Medicine 09/13/19 01/24/21 Shanta Weber MD [address] [place] [phone] [email or web address] PCP - General Family Medicine 01/25/21 03/10/21 Daisy Mclean MD, MPH [address] [place] [phone] [email or web address] PCP - General Family Medicine 03/11/21 11/17/22 Bela Dumont NP [address] [place] [phone] [email or web address] PCP - General Nurse Practitioner 11/18/22 documented as of this encounter Additional Source Comments The information contained in this document represents components of the legal health record. It is not the complete legal health record.[facility]
--- OUTSIDE RECORDS SUMMARY | 2025-06-07 16:12 | XMS_ITS | Encounter Summary ---
Author Organization [facility] Address [address] [facility] [address] [place] [phone] Phone Care Team Providers Care Pharmacy Technician Per Diem Name Role Phone Bela Dumont [employer] YOUTH SUPERVISOR Primary Care Provider Encounter Details Date Type Department Care Team (Late st Contact Info) Description 11/19/2022 Procedure Pass [facility], [address] [address] Social History Tobacco Use Types Packs/Day Years [...] Answer Date Recorded Are you interested in help w ith more adult education (for example, completing high school, GED, job training, learning the [place] language, technical skills, or developing parenting skills)? No 03/11/2021 Food Answer Date Recorded Within the past [...] basis, and looking for work? No 03/11/2021 Intimate Partner Violence Answer Date R ecorded [...] Time PHQ-2 Depression Total Score: 0 03/11/20 10:45 AM EDT documented as of this encounter Care Teams Pharmacy Technician Per Diem Relationship Specialty Start Date End Date Bela Dumont NP [address] [place] [phone] [email or web address] PCP - General Nurse Practitioner 11/18/22 documented as of this encounter Additional Source Comments The information contained in this document represents components of the legal health record. It is not the complete legal health record.[facility]
--- OUTSIDE RECORDS SUMMARY | 2025-06-07 16:12 | XMS_ITS | Encounter Summary ---
Author Organization [facility] Address [address] [facility] [address] [place] [address] Phone Care Team Providers Care Software Team Leader Name Role Phone Zaheer Morel DO Primary Care Provider +1- [phone] Pamela Nagel HEAD OF DIGITAL Primary Care Provider +1- [phone] Elizabeth Ferrer PA-C Primary Care Provider + Padmini Goss DO Primary Care Provider +1- [phone] Shanta Weber MD Primary Care Provider Daisy Mclean MD, MPH Primary Care Provid er Bela Dumont NP Primary Care Provider Encounter Details Date Type Department Care Team (Late st Contact Info) Description 07/13/2018 Ancillary Orders Virtual Department 30 [place] [address] Zaheer Morel DO [address] [place] [address] Breast screening Social History Tobacco Use Types Packs/Day Years Used Date Smoking Tobacco: Never Smokeless Tobacco: Never Comments Unknown Sex and Gender Information Value Date Recorded Sex Assigned at Female 03/11/2021 10:51 AM EDT Legal Sex Female 9:46 PM EDT Gender Identity Female 03/11/2021 10:51 AM EDT Sexual Orientation Straight 03/11/2021 10 :51 AM EDT documented as of this encounter Plan of Treatment Not on file documented as of this encounter Results * BI MAMMOGRAM SCREENING WITH TOMOSYNTHESIS WITH CAD (BILATERAL) (07/15/2018 3:54 PM EDT) Anatomical Region Laterality Modality Breast Left, Breast Right, Breast Bilateral Bila teral Mammography 07/16/2018 10:1 3 AM EDT Impressions 07/16/2018 10:18 AM EDT BILATERAL BREASTS: Negative, no evidence of malignancy. Normal interval follow- up is recommended in 12 months. Bi-RADS: BI-RADS CATEGORY: 1 - Negative. DENSITY: There are scattered fibroglandular densities. POS - CDHMAM2 Narrative 07/16/2018 10:18 AM EDT STUDY: Bilateral screening mammography with tomosynthesis and CAD TECHNIQUE: Bilateral full-field digital screening mammography is obtained and read in conjunction with computer-aided detection. Tomosynthesis as well as 2-D C view imaging were obtained. COMPARISON: Comparison made to multiple prior, most recent April 30, 2017, and most remote January 16, 2012. BREAST COMPOSITION: There are scattered areas of fibroglandular density BILATERAL BREASTS: No significant masses, calcifications or other abnormalities are seen. Procedure Note Audi Dominguez MD - 07/16/2018 STUDY: Bilateral screening mammography with tomosynthesis and CAD TECHNIQUE: Bilateral full-field digital screening mammography is obtainedand read in conjunction with computer-aided detection. Tomosynthesis aswell as 2-D C view imaging were obtained. COMPARISON: Comparison made to multiple prior, most recent April, and most remote January 16, 2012. BREAST COMPOSITION: There are scattered areas of fibroglandulardensity BILATERAL BREASTS: No significant masses, calcifications or otherabnormalities are seen. IMPRESSION: BILATERAL BREASTS: Negative, no evidence of malignancy. Normal intervalfollow-up is recommended in 12 months. Bi-RADS: BI-RADS CATEGORY: 1 - Negative. DENSITY: There are scattered fibroglandular densities. POS - CDHMAM2 Zaheer Morel DO IMG MG EXAMS Final Resu lt documented in this encounter Visit Diagnoses Diagnosis Breast screening Breast screening, unspecified Breast screening Breast screening, unspecified documented in this encounter Care Teams Software Team Leader Relationship Specialty Start Date End Date Zaheer Morel DO [address] [place] [address] PCP - General Internal Medicine 08/21/17 07/14/18 Pamela Nagel NP [address] [place] [phone] PCP - General Family Medicine 07/15/18 06/29/19 Elizabeth Ferrer PA-C [address] [place] [address] PCP - General Unknown Provider Specialty 06/30/19 Padmini Goss DO [address] [place] [phone] [email or web address] PCP - General Family Medicine 09/13/19 01/24/21 Shanta Weber MD [address] [place] [phone] [email or web address] PCP - General Family Medicine 01/25/21 03/10/21 Daisy Mclean MD, MPH [address] [place] [phone] PCP - General Family Medicine 03/11/21 11/17/22 Bela Dumont, ALDEN [address] [place] [address] [phone] [email or web address] PCP - General Nurse Practitioner 11/18/22 documented as of this encounter Additional Source Comments The information contained in this document represents components of the legal health record. It is not the complete legal health record.[facility]
--- OUTSIDE RECORDS SUMMARY | 2025-06-07 16:12 | XMS_ITS | Encounter Summary ---
Author Organization [facility] Address [address] [facility] [address] [place] [address] Phone Care Team Providers Care Cement Storage Worker Name Role Phone Bela Dumont STUBBER Primary Care Provider Encounter Details Date Type Department Care Team (Late st Contact Info) Description 11/20/2023 Procedure Pass [facility], [address] [address] Social History Tobacco Use Types Packs/Day Years [...] documented as of this encounter Care Teams Cement Storage Worker Relationship Specialty Start Date End Date Bela Dumont NP [address] [place] [phone] [email or web address] PCP - General Nurse Practitioner 11/18/22 documented as of this encounter Additional Source Comments The information contained in this document represents components of the legal health record. It is not the complete legal health record.[facility]
--- OUTSIDE RECORDS SUMMARY | 2025-06-07 16:12 | XMS_ITS | Encounter Summary ---
Author Organization [facility] Address [address] [facility] [address] [place] [address] Phone Care Team Providers Care Mail Handler Sorter Name Role Phone Daisy Mclean MD, MPH Primary Care Provid er Bela Dumont RURAL CARRIER ASSOCIATE Primary Care Provider Encounter Details Date Type Department Care Team (Late st Contact Info) Description 10/09/2022 Procedure Pass [facility] Endoscopy Admitting Dept Virtual Department 30 [place] [address] Social History Tobacco Use Types Packs/Day Years [...] high school, GED, job training, learning the Nepalese language, technical skills, or developing parenting skills)? [...] documented as of this encounter Care Teams Mail Handler Sorter Relationship Specialty Start Date End Date Daisy Mclean MD, MPH [address] [place] [address] [email or web address] PCP - General Family Medicine 03/11/21 11/17/22 Bela Dumont, ALDEN [address] [place] [phone] PCP - General Nurse Practitioner 11/18/22 documented as of this encounter Additional Source Comments The information contained in this document represents components of the legal health record. It is not the complete legal health record.[facility]
--- OUTSIDE RECORDS SUMMARY | 2025-06-07 16:12 | XMS_ITS | Encounter Summary ---
Author Organization [facility] Address [address] [facility] [address] [place] [address] Phone Care Team Providers Care Retread Technician Name Role Phone Daisy Mclean MD, MPH Primary Care Provid er Bela Dumont STONE SANDBLASTER Primary Care Provider Encounter Details Date Type Department Care Team (Late st Contact Info) Description 11/14/2022 Procedure Pass [address] [address] Social History Tobacco Use Types Packs/Day Years [...] high school, GED, job training, learning the Armenian language, technical skills, or developing parenting skills)? [...] documented as of this encounter Care Teams Retread Technician Relationship Specialty Start Date End Date Daisy Mclean MD, MPH [address] [place] [address] [email or web address] PCP - General Family Medicine 03/11/21 11/17/22 Bela Dumont, ALDEN [address] [place] [phone] [email or web address] PCP - General Nurse Practitioner 11/18/22 documented as of this encounter Additional Source Comments The information contained in this document represents components of the legal health record. It is not the complete legal health record.[facility]
--- OUTSIDE RECORDS SUMMARY | 2025-06-07 16:12 | XMS_ITS | Encounter Summary ---
Author Organization [facility] Address [address] [facility] [address] [place] [address] Phone Care Team Providers Care Seam Presser Name Role Phone Zaheer Morel DO Primary Care Provider +1- [phone] Pamela Nagel AIR TRAFFIC CONTROL MANAGER Primary Care Provider +- [phone] Elizabeth Ferrer PA-C Primary Care Provider + Padmini Goss DO Primary Care Provider +- [phone] Shanta Weber MD Primary Care Provider +1- [phone] Daisy Mclean MD, MPH Primary Care Provid er Bela Dumont AIR TRAFFIC CONTROL MANAGER Primary Care Provider Encounter Details Date Type Department Care Team (Late st Contact Info) Description 08/21/2017 Procedure Pass [facility] Endoscopy Admitting Dept [facility] Department [address] [place] [address] [phone] Social History Tobacco Use Types Packs/Day Years [...] Diagnoses Not on filedocumented in this encounter Care Teams Seam Presser Relationship Specialty Start Date End Date Zaheer Morel DO [address] [place] [address] PCP - General Internal Medicine 08/21/17 07/14/18 Pamela Nagel NP [address] [place] [address] PCP - General Family Medicine 07/15/18 06/29/19 Elizabeth Ferrer PA-C [address] [place] [address] PCP - General Unknown Provider Specialty 06/30/19 Padmini Goss DO [address] [place] [address] [email or web address] PCP - General Family Medicine 09/13/19 01/24/21 Shanta Weber MD [address] [place] [address] [email or web address] PCP - General Family Medicine 01/25/21 03/10/21 Daisy Mclean MD, MPH [address] [place] [address] PCP - General Family Medicine 03/11/21 11/17/22 Bela Dumont NP [address] [place] [phone] [email or web address] PCP - General Nurse Practitioner 11/18/22 documented as of this encounter Additional Source Comments The information contained in this document represents components of the legal health record. It is not the complete legal health record.[facility]
--- OUTSIDE RECORDS SUMMARY | 2025-06-07 16:12 | XMS_ITS | Encounter Summary ---
Author Organization [facility] Address [address] [facility] [address] [place] [address] Phone Care Team Providers Care Park Worker Name Role Phone Bela Dumont DECKHAND OYSTER DREDGE Primary Care Provider Encounter Details Date Type Department Care Team (Late st Contact Info) Description 11/11/2024 Transcribe Orders Virtual Department 30 [place] [address] Bela Dumont NP [address] [place] [phone] [email or web address] Breast screening (Primary Dx) Social History Tobacco Use Types Packs/Day Years [...] be notified of the results and recommendations. Bela Dumont NP IMG MG EXAMS Final Result documented in this encounter Visit Diagnoses Diagnosis Breast screening- Primary Breast screening, unspecified Breast screening Breast screening, unspecified documented in this encounter Additional Health Concerns Assessment Noted Time PHQ-2 Depression Total Score: 0 03/11/20 21 10:45 AM EDT documented as of this encounter Care Teams Park Worker Relationship Specialty Start Date End Date Bela Dumont NP [address] [place] [phone] [email or web address] PCP - General Nurse Practitioner 11/18/22 documented as of this encounter Additional Source Comments The information contained in this document represents components of the legal health record. It is not the complete legal health record.[facility]
--- OUTSIDE RECORDS SUMMARY | 2025-06-07 16:12 | XMS_ITS | Encounter Summary ---
Author Organization [facility] Address [address] [facility] [address] [address] Phone Care Team Providers Care Renal Technician Name Role Phone Elizabeth Ferrer PA-C Primary Care Provider + Padmini Goss DO Primary Care Provider +1- [phone] Shanta Weber MD Primary Care Provider +1- [phone] Daisy Mclean MD, MPH Primary Care Provid er Bela Dumont NP Primary Care Provider Encounter Details Date Type Department Care Team (Late st Contact Info) Description 06/30/2019 Ancillary Orders Virtual Department 30 [place] [address] Elizabeth Ferrer PA-C [address] [place] [address] Breast screening Social History Tobacco Use Types [...] MAMMOGRAM SCREENING WITH TOMOSYNTHESIS WITH CAD (BILATERAL) (07/18/2019 3:42 PM EDT) Anatomical Region Laterality Modality Breast Left, Breast Right, Breast Bilateral Bila teral Mammography 07/19/2019 3:03 PM EDT Impressions 07/19/2019 3:04 PM EDT RIGHT breast: No mammographic evidence of malignancy. LEFT breast: No mammographic evidence of malignancy. RECOMMENDED FOLLOWUP: Routine screening mammography is recommended, as clinically appropriate. The results will be sent by mail to the patient. BI-RADS CATEGORY: 1 - Negative. BREAST COMPOSITION: There are scattered fibroglandular densities. POS - CDHMAM2 Narrative 07/19/2019 3:04 PM EDT EXAM: BI MAMMOGRAM SCREENING WITH TOMOSYNTHESIS WITH CAD (BILATERAL) HISTORY: Screening. * Annual Breast screening COMPARISON: Prior mammograms, most recent 07/15/2018 and dating back to 2012. TECHNIQUE: Digital breast tomosynthesis was performed in CC and MLO projections. Reconstructed 2-D C-views generated from the tomosynthesis images. Images interpreted in conjunction with R-2 Image Cardiology Nurse Practitioner computer-aided detection (CAD). FINDINGS: BREAST COMPOSITION: There are scattered areas of fibroglandular density. RIGHT breast: There are no suspicious masses, suspicious areas of architectural distortion or suspicious clusters of microcalcifications. LEFT breast: There are no suspicious masses, suspicious areas of architectural distortion or suspicious clusters of microcalcifications. Procedure Note Kya Pappas MD - 07/19/2019 EXAM: BI MAMMOGRAM SCREENING WITH TOMOSYNTHESIS WITH CAD (BILATERAL) HISTORY: Screening. * Annual Breast screening COMPARISON: Prior mammograms, most recent 07/15/2018 and dating back [id number]. TECHNIQUE: Digital breast tomosynthesis was performed in CC and MLOprojections. Reconstructed 2-D C-views generated from the tomosynthesisimages. Images interpreted in conjunction with R-2 Image Checkercomputer-aided detection (CAD). FINDINGS: BREAST COMPOSITION: There are scattered areas of fibroglandular density. RIGHT breast: There are no suspicious masses, suspicious areas ofarchitectural distortion or suspicious clusters of microcalcifications. LEFT breast: There are no suspicious masses, suspicious areas ofarchitectural distortion or suspicious clusters of microcalcifications. IMPRESSION: RIGHT breast: No mammographic evidence of malignancy. LEFT breast: No mammographic evidence of malignancy. RECOMMENDED FOLLOWUP: Routine screening mammography is recommended, asclinically appropriate. The results will be sent by mail to the patient. BI-RADS CATEGORY: 1 - Negative. BREAST COMPOSITION: There are scattered fibroglandular densities. POS - CDHMAM2 us Elizabeth Ferrer PA-C IMG MG EXAMS Final Re sult documented in this encounter Visit Diagnoses Diagnosis Breast screening Breast screening, unspecified Breast screening Breast screening, unspecified documented in this encounter Care Teams Renal Technician Relationship Specialty Start Date End Date Elizabeth Ferrer PA-C [address] [place] [phone] PCP - General Unknown Provider Specialty 06/30/19 Padmini Goss DO [address] [place] [address] [email or web address] PCP - General Family Medicine 09/13/19 01/24/21 Shanta Weber MD [address] [place] [phone] [email or web address] PCP - General Family Medicine 01/25/21 03/10/21 Daisy Mclean MD, MPH [address] [place] [phone] PCP - General Family Medicine 03/11/21 11/17/22 Bela Dumont, ALDEN [address] [place] [phone] [email or web address] PCP - General Nurse Practitioner 11/18/22 documented as of this encounter Additional Source Comments The information contained in this document represents components of the legal health record. It is not the complete legal health record.[facility]
--- OUTSIDE RECORDS SUMMARY | 2025-06-07 16:12 | XMS_ITS | Encounter Summary ---
Author Organization [facility] Address [address] [facility] [address] [place] [address] Phone Care Team Providers Care Alum Plant Operator Name Role Phone Bela Dumont PC TECH Primary Care Provider Encounter Details Date Type Department Care Team (Late st Contact Info) Description 11/11/2024 Procedure Pass [facility], [address] [address] Social History Tobacco Use Types Packs/Day Years [...] documented as of this encounter Care Teams Alum Plant Operator Relationship Specialty Start Date End Date Bela Dumont NP [address] [place] [phone] PCP - General Nurse Practitioner 11/18/22 documented as of this encounter Additional Source Comments The information contained in this document represents components of the legal health record. It is not the complete legal health record.[facility]
--- OUTSIDE RECORDS SUMMARY | 2025-06-07 16:12 | XMS_ITS | Patient Health Record ---
Author [facility] Address [address] [facility] [place] [address] Care Team Providers Care Manager Actuarial Name Role Phone VinayDaisy muhammad Primary Care Provider Unavail able Black, Jammie Unavailable [phone] Allergies Allergen (clinical drug ingredient) Drug/Non Drug Allergy documented on EMR Reaction Allergy Type Onset Date Status sulfamethoxazole / trimethoprim Bactrim blistering in mouth/fever Drug Allergy Active Neosporin Unknown Drug Allergy Active tramadol Tramadol HCl Unknown Drug Allergy Acti ve Adhesive red skin Allergy Active Iodinated contrast media (substance) Iodinated Diagnostic Agents ivp dye Drug Allergy Active Latex Latex Unknown Allergy Active Substance with sulfonamide structure and antibacterial mechanism of action (substance) Sulfa Antibiotics Unknown Drug Allergy Active Reason For Referral No Information Medications Medication SIG (Take, Route, Frequency, Duration) Notes Start Date End Date Status Multivitamin Adults - as directed Orally Active Rosuvastatin Calcium 10 MG (Prior Auth: Rx Ref#:[id number]) Oral; Duration: 30 Active metFORMIN HCl 500 MG (Prior Auth: Rx Ref#:[id number]) Oral; Duration: 30 Active Levothyroxine Sodium 112 MCG (Prior Auth: Rx Ref#:[id number]) Oral; Duration: 30 Active ZyrTEC-D Allergy & Congestion Active Evening Sloan Oil Active Cetirizine HCl 10 MG (Prior Auth: Rx Ref#:[id number]) Oral; Duration: 30 Not-Taking Vitamin D3 2000 UNIT 1 capsule Orally On ce a day; Duration: 30 day(s) Active Immunizations Vaccine Route Administration Date Status Comme nts Influenza Unknown 05/22/2020 Administered Social History Tobacco Use: Social History Observation Description Date Details (start date - stop date) Never Smoker NA - NA Tobacco Use/Smoking Question Answer Notes Are you a: nonsmoker Additional Findings: Tobacco Non-User Current no n-smoker Alcohol Screen Question Answer Notes Did you have a drink contain ing alcohol in the past year? Yes How often did you have a dri nk containing alcohol in the past year? Monthly or less (1 point) How often did you have 6 or more drinks on one occasion in the past year? Less than monthly (1 point) Points 2 Interpretation Negative Tobacco use other than smoking: Question Answer Notes Are you an other tobacco user? No Problems Problem Type SNOMED Code ICD Code Onset Dates Problem Status W/U Status Risk Notes Problem Acquired hallux valgus (58838795) Hallux valgus (acquired), left foot (M20.12) Active confirmed Problem Acquired hallux valgus (15356195) Hallux valgus (acquired), right foot (M20.11) Active confirmed Problem Acquired hammer toe of right foot (1228412910481392 ) Other hammer toe(s) (acquired), right foot (M20.41) Active confirmed Problem Acquired hammer toe of left foot (2535294178880014 ) Other hammer toe(s) (acquired), left foot (M20.42) Active confirmed Problem Polyneuropathy due to type 2 diabetes mellitus (678512984) Type 2 diabetes mellitus with diabetic polyneuropathy (E11.42) Active confirmed Problem Type II diabetes mellitus without complication (977174606) Type 2 diabetes mellitus without complications (E11.9) Active confirmed Plan Of Treatment Pending Test Test Name Order Date [id number] SKIN LESION 08/12/2021 [id number] NAIL(S) 08/12/2021 [id number] NAIL(S) 08/06/2020 Insurance Providers Payer Name Payer Address Payer Phone Subscriber Number Group Number Insured Name Patient Relationship to Insured Coverage Start Date Coverage End Date [facility] [address] [facility] [place] [address] [id number] Maria Monroy Self - patient is the insured Medical (General) History Medical History History ICD Code Diabetic Psoriasis/eczema Sinus conditions thyroid Chicken pox Surgical History Surgery Date(Month/Year) intestinal surgery 1961, 1972 sinus surgery 1980's tonsillectomy wisdom teeth extraction 1989' Hospitalization History Reason Date(Month/Year) urgent care- back pain 07/2021
--- OUTSIDE RECORDS SUMMARY | 2025-06-07 16:12 | XMS_ITS | Encounter Summary ---
Author Organization [facility] Address [address] [facility] [address] [place] [address] Phone Care Team Providers Care Shearer Screen Measurer And Trimmer Name Role Phone Bela Dumont ENGINEER EXHAUSTER Primary Care Provider Encounter Details Date Type Department Care Team (Late st Contact Info) Description 11/20/2023 Transcribe Orders Virtual Department [address] [place] [address] Bela Dumont NP [address] [place] [phone] [email or web address] Breast screening (Primary Dx) Social History Tobacco [...] MAMMOGRAM SCREENING WITH TOMOSYNTHESIS WITH CAD (BILATERAL) (01/26/2024 3:44 PM EDT) Anatomical Region Laterality Modality Breast Left, Breast Right, Breast Bilateral Bila teral Mammography 01/27/2024 1:51 PM EDT Impressions 01/27/2024 1:53 PM EDT No mammographic evidence of malignancy in either breast. Annual screening mammography is recommended. BI-RADS 1 NEGATIVE The patient will be notified of the results and recommendations. Narrative 01/27/2024 1:53 PM EDT BI MAMMOGRAM SCREENING WITH TOMOSYNTHESIS WITH CAD (BILATERAL) Additional patient information: Screening. COMPARISON: Comparison is made with relevant prior imaging. Breast composition: There are scattered areas of fibroglandular density. FINDINGS: No abnormal masses, suspicious calcifications, or other significant findings are identified mammographically in either breast. Procedure Note Anjelica Ramos MD - 01/27/2024 BI MAMMOGRAM SCREENING WITH TOMOSYNTHESIS WITH CAD [...] documented as of this encounter Care Teams Shearer Screen Measurer And Trimmer Relationship Specialty Start Date End Date Bela Dumont NP [address] [place] [phone] [email or web address] PCP - General Nurse Practitioner 11/18/22 documented as of this encounter Additional Source Comments The information contained in this document represents components of the legal health record. It is not the complete legal health record.[facility]
--- OUTSIDE RECORDS SUMMARY | 2025-06-07 16:12 | XMS_ITS | Encounter Summary ---
Author Organization [facility] Address [address] [facility] [address] [place] [phone] Phone Care Team Providers Care Director Of Alumni Relations Name Role Phone Daisy Mclean MD, MPH Primary Care Provid er Bela Dumont SIMULATION ANALYST Primary Care Provider Encounter Details Date Type Department Care Team (Late st Contact Info) Description 07/11/2021 Transcribe Orders Virtual Department [address] [place] [address] Daisy Mclean MD, MPH [address] [facility] [address] [place] [address] [email or web address] Breast screening (Primary Dx) Social History Tobacco [...] high school, GED, job training, learning the [place] language, technical skills, or developing parenting skills)? [...] basis, and looking for work? No 03/11/2021 Comments No Sex and Gender Information Value [...] MAMMOGRAM SCREENING WITH TOMOSYNTHESIS WITH CAD (BILATERAL) (10/14/2021 2:53 PM EST) Anatomical Region Laterality Modality Breast Left, Breast Right, Breast Bilateral Bila teral Mammography 10/14/2021 6:24 PM EST Impressions 10/14/2021 6:26 PM EST BILATERAL BREASTS: Negative, no evidence of malignancy. Normal interval follow- up is recommended in 12 months. Bi-RADS: BI-RADS CATEGORY: 1 - Negative. DENSITY: There are scattered fibroglandular densities. Narrative 10/14/2021 6:26 PM EST STUDY: Bilateral screening mammography with tomosynthesis and CAD TECHNIQUE: Bilateral full-field digital screening mammography is obtained and read in conjunction with computer-aided detection. Tomosynthesis as well as 2-D C view imaging were obtained. COMPARISON: Comparison made to multiple prior, most recent October 03, 2020, and most remote February 05, 2015. BREAST COMPOSITION: There are scattered areas of fibroglandular density BILATERAL BREASTS: No significant masses, suspicious calcifications or other abnormalities are seen. Procedure Note Audi Dominguez MD - 10/14/2021 STUDY: Bilateral screening mammography with tomosynthesis and CAD TECHNIQUE: Bilateral full-field digital screening mammography is obtainedand read in conjunction with computer-aided detection. Tomosynthesis aswell as 2-D C view imaging were obtained. COMPARISON: Comparison made to multiple prior, most recent September, and most remote February 05, 2015. BREAST COMPOSITION: There are scattered areas of fibroglandulardensity BILATERAL BREASTS: No significant masses, suspicious calcifications orother abnormalities are seen. IMPRESSION: BILATERAL BREASTS: Negative, no evidence of malignancy. Normal intervalfollow-up is recommended in 12 months. Bi-RADS: BI-RADS CATEGORY: 1 - Negative. DENSITY: There are scattered fibroglandular densities. Daisy Mclean MD, MPH [facility] mg Result documented in this encounter Visit Diagnoses Diagnosis Breast screening- Primary Breast screening, unspecified Breast screening Breast screening, unspecified documented in this encounter Additional Health Concerns Assessment Noted Time PHQ-2 Depression Total Score: 0 03/11/20 21 10:45 AM EDT documented as of this encounter Care Teams Director Of Alumni Relations Relationship Specialty Start Date End Date Diasy Mclean MD, MPH [address] [place] [phone] PCP - General Family Medicine 03/11/21 11/17/22 Bela Dumont NP [address] [place] [phone] [email or web address] PCP - General Nurse Practitioner 11/18/22 documented as of this encounter Additional Source Comments The information contained in this document represents components of the legal health record. It is not the complete legal health record.[facility]
--- OUTSIDE RECORDS SUMMARY | 2025-06-07 16:12 | XMS_ITS | Encounter Summary ---
Author Organization [facility] Address [address] [facility] [address] [place] [phone] Phone Care Team Providers Care Vat Operator Name Role Phone Daisy Mclean MD, MPH Primary Care Provid er Bela Dumont NP Primary Care Provider Encounter Details Date Type Department Care Team (Late st Contact Info) Description 11/14/2022 Transcribe Orders Virtual Department [address] [place] [address] Bela Dumont, [place] [address] [place] [phone] [email or web address] Encounter for screening mammogram for malignant neoplasm of breast (Primary Dx) Social History Tobacco Use Types [...] high school, GED, job training, learning the [place]ic language, technical skills, or developing parenting skills)? [...] MAMMOGRAM SCREENING WITH TOMOSYNTHESIS WITH CAD (BILATERAL) (12/30/2022 3:10 PM EDT) Anatomical Region Laterality Modality Breast Left, Breast Right, Breast Bilateral Bila teral Mammography 12/31/2022 12:1 1 PM EDT Impressions 01/01/2023 12:19 PM EDT BILATERAL BREASTS: Negative, no evidence of malignancy. Recommend bilateral annual screening mammography in 12 months. Bi-RADS: BI-RADS CATEGORY: 1 - Negative. DENSITY: There are scattered fibroglandular densities. RIGHT RECOMMENDATION DUE DATE: 12 Months Recommendation: Right Mammography Screening LEFT RECOMMENDATION DUE DATE: 12 Months Recommendation: Left Mammography Screening Narrative 01/01/2023 12:19 PM EDT STUDY: Bilateral screening mammography with tomosynthesis and CAD TECHNIQUE: Bilateral full-field digital screening mammography is obtained and read in conjunction with computer-aided detection. Tomosynthesis as well as 2-D C view imaging were obtained. COMPARISON: Comparison made to multiple prior studies dating back to February 2016. BILATERAL BREASTS: No new masses, suspicious calcifications or other abnormalities are seen. No significant interval change. Procedure Note Jacob Carey MD - 01/01/2023 STUDY: Bilateral screening mammography with tomosynthesis and CAD TECHNIQUE: Bilateral full-field digital screening mammography is obtainedand read in conjunction with computer-aided detection. Tomosynthesis aswell as 2-D C view imaging were obtained. COMPARISON: Comparison made to multiple prior studies dating back to February2016. BILATERAL BREASTS: No new masses, suspicious calcifications or otherabnormalities are seen. No significant interval change. IMPRESSION: BILATERAL BREASTS: Negative, no evidence of malignancy. Recommendbilateral annual screening mammography in 12 months. Bi-RADS: BI-RADS CATEGORY: 1 - Negative. DENSITY: There are scattered fibroglandular densities. RIGHT RECOMMENDATION DUE DATE: 12 Months Recommendation: Right Mammography Screening LEFT RECOMMENDATION DUE DATE: 12 Months Recommendation: Left Mammography Screening Bela Dumont TECHNICAL CABLE JOINTER IMG MG EXAMS Final Result documented in this encounter Visit Diagnoses Diagnosis Encounter for screening mammogram for malignant neoplasm of breast- Primary Encounter for screening mammogram for malignant neoplasm of breast documented in this encounter Additional Health Concerns Assessment Noted Time PHQ-2 Depression Total Score: 0 03/11/ 21 10:45 AM EDT documented as of this encounter Care Teams Vat Operator Relationship Specialty Start Date End Date Daisy Mclean MD, MPH [address] [place] [phone] [email or web address] PCP - General Family Medicine 03/11/21 11/17/22 Bela Dumont NP [address] [place] [phone] [email or web address] PCP - General Nurse Practitioner 11/18/22 documented as of this encounter Additional Source Comments The information contained in this document represents components of the legal health record. It is not the complete legal health record.[facility]
--- OUTSIDE RECORDS SUMMARY | 2025-06-07 16:12 | XMS_ITS | Encounter Summary ---
Author Organization [facility] Address [address] [facility] [address] [place] [phone] Phone Care Team Providers Care Health And Safety Coordinator Name Role Phone Daisy Mclean MD, MPH Primary Care Provid er Bela Dumont VISUAL LEAD Primary Care Provider Encounter Details Date Type Department Care Team (Late st Contact Info) Description 07/11/2021 Procedure Pass [facility], [address] [phone] Social History Tobacco Use Types Packs/Day Years [...] high school, GED, job training, learning the [place]ian language, technical skills, or developing parenting skills)? [...] documented as of this encounter Care Teams Health And Safety Coordinator Relationship Specialty Start Date End Date Daisy Mclean MD, MPH [address] [place] [phone] PCP - General Family Medicine 03/11/21 11/17/22 Bela Dumont NP [address] [place] [phone] [email or web address] PCP - General Nurse Practitioner 11/18/22 documented as of this encounter Additional Source Comments The information contained in this document represents components of the legal health record. It is not the complete legal health record.[facility]
== END 2025-06-07 13:09 | disposition home or self-care (01) ==
LOC: HO.HSM 12:46
PROVIDERS: PCP Family Medicine; Referring Provider Family Medicine; Visit Provider Psychiatry & Neurology Neurology
DX: M54.12 Radiculopathy, cervical region (principal); M50.90 Cervical disc disorder, unspecified, unspecified cervical region
CPT/HCPCS: 99214